=== PATIENT | female | born 1950 | race Hispanic/Latino ===

== ENCOUNTER 2024-02-03 19:01 | Emergency (ER) | payer MEDICAID, SELFPAY ==
[2024-02-03 19:08] VITALS: BP 160/90
[2024-02-03 19:41] LABS: % Basophils 0.6 % (0-2); % Immature Granulocytes 0.1 % (0-0.5); % Lymphocytes 39.4 % (20.5-51.1); % Monocytes 7.7 % (1.7-9.3); % Neutrophils 50.2 % (42.2-75.2); Absolute Basophils 0.1 10^3/uL (0-0.2); Absolute Eosinophils 0.2 10^3/uL (0-0.7); Absolute Lymphocytes 3.2 10^3/uL (1.2-3.4); Absolute Monocytes 0.6 10^3/uL (0.1-0.6); Absolute Neutrophils 4.1 10^3/uL (1.4-6.5); Hemoglobin 14.3 g/dL (12.0-16.0); Mean Corpuscular Hgb 29.4 pg (27.0-31.0); Mean Corpuscular Volume 86.2 fL (81.0-99.0); Nucleated Red Blood Cells % 0 %; Platelet Count 295 10^3/uL (130-400); Red Blood Cell Count 4.87 10^6/uL (4.20-5.40); Red Cell Dist. Width 13.5 % (11.5-14.5); White Blood Cell Count 8.2 10^3/uL (4.8-10.8)
[2024-02-03 19:45] LABS: ALT (SGPT) 28 U/L (0-35); AST (SGOT) 30 U/L (14-36); Albumin 4.8 g/dl (3.5-5.0); Alkaline Phosphatase 109 U/L (38-126); Blood Urea Nitrogen 13 mg/dl (7-17); Carbon Dioxide 29 mmol/L (22-30); Chloride 104 mmol/L (98-107); Glucose 103 mg/dl (70-99); Potassium 3.8 mmol/L (3.5-5.1); Sodium 141 mmol/L (135-145); Total Bilirubin 0.5 mg/dl (0.2-1.3); Total Protein 8.3 g/dl (6.3-8.2); eGFR > 60.00
[2024-02-03 19:54] LABS: Lipase 129 U/L (23-300)
--- NOTE | 2024-02-03 22:19 | ED.GENMED ---
History of Present Illness
General
Chief Complaint: Abdominal Pain
Source: patient, family and other ([employer])
Exam Limitations: none
Time Seen by Provider: 02/03/24 21:34
Nursing documentation reviewed up to this point in time: agreed with
Travel History
Have you had any contact with someone who has COVID-19?: No
Do you have any symptoms of coronavirus? Fever > 100 degrees, chills, cough, shortness of breath, sore throat, loss of taste or smell, muscle aches, or headache?: No
History of Present Illness
History of Present Illness:
73-year-old female hypertension diabetes prior hernia repair prior ?, Presents with mid abdominal pain nausea no vomiting no diarrhea no fever chills no chest pain or shortness of breath pain is intermittent
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
Past History
Past History
ED Past Medical History: HTN and NIDDM
ED Past Surgical History: Gynecological (Hysterectomy) and Other (Hernia)
Social History
Tobacco: Non-smoker
Alcohol: None
Drug: None
Personal: Single
Living: with family
Employment: Retired
Family History
Family History: Other (Noncontributory)
Review of Systems
Review of Systems
All Other Systems: Not applicable
Constitutional: Denies fever or fatigue
Respiratory: Denies trouble breathing
Cardiac: Denies chest pain
ABD/GI: Reports abdominal pain and nausea; Denies vomiting
: Reports no symptoms
Musculoskeletal: Reports no symptoms
Skin: Reports no symptoms
Phy Exam
Physical Exam
Physical Exam:
Physical Exam
General: 73 female mildly uncomfortable nontoxic
Neck: No jaundice
Heart: s1/s2 regular rate and rhythm, no murmur. equal radial pulses.
Lungs: no acute respiratory distress. clear bilaterally
Abdomen: Tender in the mid upper abdomen
Neuro: alert and oriented. no focal neurological deficits
Skin: no rash
Psychiatric: well kept. interactive and cooperative
Extremities: no edema.
Course
Orders/Labs/Results
Orders:
Orders
02/03/24 19:22
Complete Blood Count/With Diff Urgent
Comprehensive Metabolic Panel Urgent
Lipase Urgent
02/03/24 22:13
Cardiac Monitoring- Treatment ONCE
IV Insert/Care/Rem.- Treatment PRN
0.9% Sodium Chloride 1000 ml [Nss] 1,000 ml IV BOLUS
HYDROmorphone [Dilaudid] 0.5 mg IV NOW STA
Ondansetron Injectable [Zofran] 4 mg IV NOW STA
Pantoprazole [Protonix IV] 40 mg IV NOW STA
02/03/24 22:14
Electrocardiogram (*1) Stat
Reason for Study: Abdominal Pain
CT Abd/Pel (IV only)-DH only Urgent
Comment:
Reason For Exam: pain
EKG- Treatment ONCE
US Abdomen Complete/Upper Urgent
Comment:
Reason For Exam: pain
02/03/24 23:11
Troponin I Urgent
Abnormal Lab Results
02/03/24
19:22
Glucose 103 H mg/dl
(70-99)
Total Protein 8.3 H g/dl
(6.3-8.2)
02/03/24 19:22
02/03/24 19:22
Vital Signs
Initial and Last Documented VS:
Initial Vital Signs
Temp Pulse Resp BP Pulse Ox
98 F 65 18 160/90 98
02/03/24 19:08 02/03/24 19:08 02/03/24 19:08 02/03/24 19:08 02/03/24 19:08
Last Documented Vital Signs
Temp Pulse Resp BP Pulse Ox
98 F 65 18 160/90 98
02/03/24 19:08 02/03/24 19:08 02/03/24 19:08 02/03/24 19:08 02/03/24 19:08
MDM/Problems Addressed
Differential Diagnosis Includes:
Biliary colic bowel obstruction pancreatitis conceivably ACS, enteritis
MDM/Problems Addressed:
Abdominal pain nausea
Chronic conditions affecting care: DM, HTN and Previous abdomnial surgery
Acute Exacerbation and/or Progression of Chronic Illness: DM and HTN
*Radiology
Radiology exam reviewed: radiology read reviewed
*Pulse Oximetry
Patient hypoxic: no
*EKG
Interpreted by ED Provider?: Yes
Interpretation: normal
Comparison EKG: no comparison EKG present
Heart Rate: 70
Rate: normal
Rhythm: sinus
Ischemia: no ischemia
*[employer] 5 Teacher Interpretation
Rate: normal
Interpretation: normal
Heart Rate: 70
Rhythm: sinus
*Critical Care Note
Total Time (30-74mins, 75-104mins- exclusive of procedures): Not Applicable
Update Note
Update Note:
12:45 AM ultrasound report noted labs noted EKG noted troponin noted vision radiology report noted
Reviewed with patient and daughter patient's feeling better her abdomen is soft and nontender moved her bowels this morning, she is hungry
ED Attending Note
-
Portions of this chart may have been created with voice recognition software.� Occasional wrong word or��sound alike� substitutions may have occurred due to the inherent limitations of voice recognition software.
Discharge Plan
Departure
Patient Disposition: Home (Routine Discharge)
Date of Disposition: 02/04/24
Time of Disposition: 00:52
Patient with high blood pressure during this ER visit?: No
Condition: Good
Covid-19: Not Applicable
Discharge Problem:
Abdominal pain
Instructions: Abdominal Pain
Prescriptions:
New
pantoprazole [Protonix] 20 mg tablet,delayed release (DR/EC)
20 mg PO DAILY Qty: 20 0RF
ondansetron 4 mg tablet,disintegrating
4 mg PO TIDPRN PRN (Reason: nausea/vomiting) Qty: 10 0RF
dicyclomine 20 mg tablet
20 mg PO QID PRN (Reason: abdominal pain) Qty: 10 0RF
No Action
carvedilol [Coreg] 25 MG tablet
25 mg PO HS
losartan [Cozaar] 100 MG tablet
100 mg PO DAILY
omeprazole 40 MG capsule,delayed release(DR/EC)
40 mg PO DAILY Qty: 30 0RF
Referrals:
NONE,* [Family Provider] -
Interventions
Interventions:
*Risk Screen - Suicide Last Done: 02/03/24 19:08
*General Assessment Last Done: 02/03/24 19:08
*Neglect/Abuse Screening Last Done: 02/03/24 19:08
Discharge Date and Time
Print Language: HUNGARIAN
[2024-02-03] MEDS: ZOFRAN 4 MG IV (23:00)
[2024-02-03] MEDS: PROTONIX IV 40 MG IV (23:00)
[2024-02-03] MEDS: DILAUDID 0.5 MG IV (23:00)
[2024-02-03] MEDS: NSS 1000 IV (23:05)
[2024-02-03 23:41] LABS: Troponin I < 0.012 ng/ml
[2024-02-04 01:31] VITALS: BP 115/54
== END 2024-02-04 01:33 | disposition home or self-care (01) ==
LOC: EMR 19:01
PROVIDERS: Emergency Medicine; EMERGENCY PHYSICIAN Emergency Medicine
DX: R10.9 Unspecified abdominal pain (principal); I10 Essential (primary) hypertension; E11.9 Type 2 diabetes mellitus without complications; Z90.710 Acquired absence of both cervix and uterus
CPT/HCPCS: 99284; 96374; 96375; 96361; 74177; 76700; 80053; 83690; 84484; 85025; 93005; Q9967